=== PATIENT | male | born 1985 | race Caucasian/White ===

== ENCOUNTER 2018-11-14 18:51 | Inpatient (IN) | payer OTHER ==
[2018-11-14] MEDS ORDERED: fentaNYL 100 MCG/2 ML INJ ONE ×2 (18:52→19:15)
[2018-11-14] MEDS ORDERED: HYDROmorphONE/DILAUDID 1 MG/ML INJ ONE ×2 (18:57→19:07)
[2018-11-14] MEDS ORDERED: MIDAZOLAM 2 MG/2 ML VIAL ONE (19:03)
[2018-11-14] MEDS ORDERED: CEFAZOLIN 2 GM/DEXTROSE/100 ML BAG IV ONE (19:06)
[2018-11-14] MEDS ORDERED: TDAP ADULT 0.5 ML INJ (BOOSTRIX) IM ONE ×2 (19:09→19:30)
[2018-11-14] MEDS ORDERED: ROCURONIUM 100 MG/10 ML VIAL ONE (19:15)
[2018-11-14] MEDS ORDERED: SUCCINYLCHOLINE CHLORIDE 200 MG/10 ML SYR IVP ONE (19:15)
[2018-11-14] MEDS ORDERED: LIDOCAINE 2% 2 ML INJ ONE ×3 (19:15)
[2018-11-14] MEDS ORDERED: PROPOFOL 200 MG/20 ML VIAL ONE (19:15)
[2018-11-14 19:18] LABS: PLATELET COUNT 228 10^3/uL (150-400)
[2018-11-14] MEDS ORDERED: ceFAZolin 2 GM/DEXTROSE 100 ML IV ONE (19:30)
[2018-11-14] MEDS ORDERED: MIDAZOLAM 2 MG/2 ML VIAL IVP ONE (19:30)
[2018-11-14] MEDS ORDERED: HYDROmorphONE/DILAUDID 1 MG/ML INJ IVP ONE ×2 (19:30)
[2018-11-14 19:34] LABS: INR 1.44 (0.83-1.16); PROTIME(PATIENT) 16.9 SEC (12.0-15.0)
--- NOTE | 2018-11-14 20:01 | EDPHY ---
H & P Stated Complaint: trauma Time Seen by Provider: 11/14/18 19:17 HPI/ROS: CHIEF COMPLAINT: Fall, humerus fracture, full trauma activation HISTORY OF PRESENT ILLNESS: This is a 32-year-old male presents via EMS as a full trauma activation. Patient was on a trail, cannot describe exactly what happened, but apparently fell approximately 100 ft. This occurred this afternoon. Patient states he was able to walk up to the road and bystanders called EMS. Patient's primary complaint is of right elbow pain, lower back pain , lower abdominal pain. Patient's right upper extremity had a tourniquet placed by paramedics which was placed at 6:30 p.m.. Obvious deformity and open fracture/dislocation is present. Patient denies a head injury, loss of consciousness, chest pain, shortness of breath, neck pain, or lower extremity pain. REVIEW OF SYSTEMS: A comprehensive 10 system review of systems was reviewed and is otherwise negative aside from elements mentioned in the history of present illness and medical decision making. PAST MEDICAL HISTORY: Patient denies. SOCIAL HISTORY: Unknown smoking history. VITAL SIGNS: Reviewed by me; see NN. GENERAL: Well-developed, well-nourished, complaining of right arm pain. HEENT: Head: Atraumatic, normocephalic. Face: Atraumatic. PERRL, EOMI, no nystagmus. Oropharynx: No trauma, normal occlusion. Neck: In a cervical collar. Nontender to palpation. CHEST: Nontender, no subcutaneous air palpable. LUNGS: Clear to auscultation bilaterally, breath sounds are equal. CARDIAC: Regular rate and rhythm, no rubs, murmurs or gallops. ABDOMEN: Soft, tenderness in the left lower quadrant. Nondistended. No guarding. BACK: No CVA tenderness, no spinal tenderness. Multiple abrasions down the right posterior chest wall and right flank. EXTREMITIES: Right upper extremity: Large open wound at the antecubital fossa with muscle, debris, and the distal humerus visible in the wound. Medial and lateral condyles of the humerus visible and protruding from the wound with no muscle attachment. Tourniquet was in place on the humerus. Obvious deformity at the left wrist. Remainder of the extremities without deformity. PULSES: No pulse palpable at the right wrist but tourniquet is in place. NEURO: Alert and oriented x3, cranial nerves are intact throughout, normal motor , normal sensation. SKIN: Warm and dry, no rash. - Personal History Current Tetanus/Diphtheria Vaccine: Unsure Current Tetanus Diphtheria and Acellular Pertussis (TDAP): Unsure - Medical/Surgical History Hx Asthma: No Hx Chronic Respiratory Disease: No Hx Diabetes: No Hx Cardiac Disease: No Hx Renal Disease: No Hx Cirrhosis: No Hx Alcoholism: No Hx HIV/AIDS: No Hx Splenectomy or Spleen Trauma: No Other PMH: denies - Social History Smoking Status: Unknown if ever smoked Constitutional: Initial Vital Signs Temperature (C) 36.4 C 11/14/18 18:51 Heart Rate 65 11/14/18 18:51 Respiratory Rate 20 11/14/18 18:51 Blood Pressure 98/72 L 11/14/18 18:51 O2 Sat (%) 100 11/14/18 18:51 O2 Delivery Mode Nasal Cannula O2 (L/minute) 4 Allergies/Adverse Reactions: No Known Allergies Allergy (Verified 11/14/18 19:35) Home Medications: Medication Instructions Recorded NK [No Known Home Meds] 11/14/18 Medical Decision Making - Diagnostics Imaging Results: Imaging Impressions Fluoroscopy 11/14/18 00:00 Findings/Impression: Fluoroscopic images demonstrate intraoperative repair of fracture and dislocation of the ulna and radius. Contrast is also injected to opacify the arteries of the forearm and hand which appear patent with the exception of decreased opacification of the mid to distal radial artery, possibly spasm. Total fluoroscopic time of 176.3 seconds, 2.9 mGy. Forearm X-Ray 11/14/18 19:10 Impression: 1. Comminuted fracture of the distal radius. 2. Lateral subluxation of the distal humerus in relation to the proximal radius and ulna. Soft tissue air near the elbow is also seen likely from trauma. ED Course/Re-evaluation: 32-year-old male presents after a fall where he rolled approximately 100 [address] from a trail. Obvious complete dislocation at the right elbow joint with distal humerus easily visible in the wound. Also with abdominal discomfort. Procedure: Trauma ultrasound. Limited abdominal ultrasound for blunt abdominal trauma. 1) The right upper quadrant was visualized and was found to be negative for intraperitoneal fluid. 2) The left upper quadrant was visualized and found to be negative for free intraperitoneal fluid, however, several hypoechoic areas were visualized near the spleen, questionably inter splenic fluid collections. The study was felt to be negative for free intraperitoneal fluid but questionable splenic injury. Limited pelvic ultrasound was conducted for abdominal trauma. The bladder was visualized and did not reveal an anechoic area outside of the adjacent urinary bladder. The study was felt to be negative for free intraperitoneal fluid. The study was performed by myself. Tourniquet was removed by myself and Dr. Larios. Several brisk arterial bleeders in the muscle were present. Ulnar pulses appears to be palpable at the wrist. Radial pulse is difficult to ascertain. At this point the tourniquet was reapplied. Distal humerus was reduced into the wound fossa and distal radius/ulnar deformities were closed reduced and a splint was placed by myself and the emergency department tech staff. Decision made to obtain x-rays of the elbow and wrist, administer 1 g of Ancef, and proceed directly to the operating room for further evaluation of the vascular status of the patient's right upper extremity. I-STAT demonstrates stable H&H. No clearly identified intra-abdominal bleeding to preclude management of the arm as initial priority. No evidence of head injury, concussion, patient is alert oriented, no evidence of respiratory compromise. Dr. Larios and discussed the case with Dr. Haider as well as Dr. Rubio. Patient was taken emergently to the operating room at 7:15 p.m. Critical care time spent by Dr. Tanmay workman exclusively with this patient was 30 minutes, exclusive of PA time and exclusive of procedures. The organ system at risk was neurovascular status of the right upper extremity and I gave IV fluids, antibiotics, arranged radiographic evaluation, and placed splint to prevent worsening of the patients condition. Critical care time included obtaining history, performing a physical exam, bedside monitoring of interventions, collecting and interpreting tests and discussion with consultants but not including time spent performing procedures. Differential Diagnosis: Differential diagnosis of this patient's traumatic event was considered including but not limited to intracranial injury, long bone and pelvic bone fracture, spinal injury, intrathoracic injury, extremity injury, vascular injury , complete dislocation of the elbow, intra-abdominal injury, threatened limb. Consult/Admit Bed Type: Dr. Debbie Larios, ICU - Data Points Laboratory Results: Laboratory Results 11/14/18 19:00 11/14/18 19:00 11/14/18 11/14/18 11/14/18 19:03 19:00 19:00 WBC RBC Hgb POC Hgb 13.9 gm/dL gm/dL (13.7-17.5) Hct POC Hct 41 % % (40-51) MCV MCH MCHC RDW Plt Count MPV Neut % (Auto) Lymph % (Auto) [place] % (Auto) Eos % (Auto) Baso % (Auto) Nucleat RBC Rel Count Absolute Neuts (auto) Absolute Lymphs (auto) Absolute Monos (auto) Absolute Eos (auto) Absolute Basos (auto) Absolute Nucleated RBC Immature Gran % Immature Gran # RBC/WBC/PLT Morphology Platelet Estimate PT INR APTT POC Sodium 143 mEq/L mEq/L (135-145) Sodium 138 mEq/L mEq/L (135-145) POC Potassium 3.6 mEq/L mEq/L (3.3-5.0) Potassium 3.8 mEq/L mEq/L (3.5-5.2) POC Chloride 103 mEq/L mEq/L (97-110) Chloride 102 mEq/L mEq/L (97-110) Carbon Dioxide 20 mEq/l L mEq/l (22-31) POC Total CO2 23 mEq/L mEq/L (22-31) Anion Gap 16 mEq/L H mEq/L (6-14) POC BUN 20 mg/dL mg/dL (7-23) BUN 18 mg/dL mg/dL (7-23) Creatinine 1.3 mg/dL mg/dL (0.7-1.3) POC Creatinine 1.4 mg/dL H mg/dL (0.7-1.3) Estimated GFR > 60 Glucose 177 mg/dL H mg/dL (70-100) POC Glucose 183 mg/dL H mg/dL (70-100) Calcium 8.9 mg/dL mg/dL (8.5-10.4) Ethyl Alcohol < 10 mg/dL mg/dL (0-10) Patient ABO/Rh A POSITIVE Antibody Screen NEGATIVE Crossmatch IS Only See Detail 11/14/18 11/14/18 19:00 19:00 WBC 24.46 10^3/uL H 10^3/uL (3.80-9.50) RBC 4.40 10^6/uL 10^6/uL (4.40-6.38) Hgb 13.6 g/dL L g/dL (13.7-17.5) POC Hgb Hct 41.4 % % (40.0-51.0) POC Hct MCV 94.1 fL fL (81.5-99.8) MCH 30.9 pg pg (27.9-34.1) MCHC 32.9 g/dL g/dL (32.4-36.7) RDW 11.8 % % (11.5-15.2) Plt Count 228 10^3/uL 10^3/uL (150-400) MPV 9.7 fL fL (8.7-11.7) Neut % (Auto) 85.3 % H % (39.3-74.2) Lymph % (Auto) 6.9 % L % (15.0-45.0) [place] % (Auto) 6.8 % % (4.5-13.0) Eos % (Auto) 0.1 % L % (0.6-7.6) Baso % (Auto) 0.2 % L % (0.3-1.7) Nucleat RBC Rel Count 0.0 % % (0.0-0.2) Absolute Neuts (auto) 20.86 10^3/uL H 10^3/uL (1.70-6.50) Absolute Lymphs (auto) 1.69 10^3/uL 10^3/uL (1.00-3.00) Absolute Monos (auto) 1.66 10^3/uL H 10^3/uL (0.30-0.80) Absolute Eos (auto) 0.02 10^3/uL L 10^3/uL (0.03-0.40) Absolute Basos (auto) 0.05 10^3/uL 10^3/uL (0.02-0.10) Absolute Nucleated RBC 0.00 10^3/uL 10^3/uL (0-0.01) Immature Gran % 0.7 % % (0.0-1.1) Immature Gran # 0.17 10^3/uL H 10^3/uL (0.00-0.10) RBC/WBC/PLT Morphology TNP Platelet Estimate TNP PT 16.9 SEC H SEC (12.0-15.0) INR 1.44 H (0.83-1.16) APTT 29.3 SEC SEC (23.0-38.0) POC Sodium Sodium POC Potassium Potassium POC Chloride Chloride Carbon Dioxide POC Total CO2 Anion Gap POC BUN BUN Creatinine POC Creatinine Estimated GFR Glucose POC Glucose Calcium Ethyl Alcohol Patient ABO/Rh Antibody Screen Crossmatch IS Only Medications Given: Morphine Sulfate (Morphine) 1 - 2 mg IVP Q1HR PRN PRN Reason: Pain, Severe Unable to Take PO Stop: 11/24/18 20:18 Last Admin: 11/14/18 21:50 Dose: 2 mg Discontinued Medications Diphtheria/Tetanus/Acell Pertussis (Boostrix) 0.5 ml IM .ONCE ONE Stop: 11/14/18 19:31 Last Admin: 11/14/18 19:10 Dose: 0.5 ml Hydromorphone HCl (Dilaudid) 1 mg IVP EDNOW ONE Stop: 11/14/18 19:31 Last Admin: 11/14/18 18:59 Dose: 1 mg Hydromorphone HCl (Dilaudid) 1 mg IVP EDNOW ONE Stop: 11/14/18 19:31 Last Admin: 11/14/18 19:09 Dose: 1 mg Cefazolin Sodium/Dextrose (Ancef) 100 mls @ 200 mls/hr IV EDNOW ONE Stop: 11/14/18 19:59 Last Admin: 11/14/18 19:07 Dose: 100 mls Midazolam HCl (Versed) 2 mg IVP EDNOW ONE Stop: 11/14/18 19:31 Last Admin: 11/14/18 19:04 Dose: 2 mg Papaverine HCl (Papaverine) Confirm Administered Dose 60 mg .ROUTE .STK-MED ONE Stop: 11/14/18 20:09 Last Admin: 11/14/18 21:35 Dose: 1 mg Point of Care Test Results: Chemistry 11/14/18 19:03 POC Sodium 143 mEq/L mEq/L (135-145) POC Potassium 3.6 mEq/L mEq/L (3.3-5.0) POC Chloride 103 mEq/L mEq/L (97-110) POC Total CO2 23 mEq/L mEq/L (22-31) POC BUN 20 mg/dL mg/dL (7-23) POC Creatinine 1.4 mg/dL H mg/dL (0.7-1.3) POC Glucose 183 mg/dL H mg/dL (70-100) ISTAT H&H 11/14/18 19:03 POC Hgb 13.9 gm/dL gm/dL (13.7-17.5) POC Hct 41 % % (40-51) Departure - Departure Disposition: [facility] Inpatient Acute Clinical Impression: Multiple abrasions Dislocation of elbow, right, open Qualifiers: Encounter type: initial encounter Qualified Code(s): S53.104A - Unspecified dislocation of right ulnohumeral joint, initial encounter; S51.001A - Unspecified open wound of right elbow, initial encounter; S51.001A - Unspecified open wound of right elbow, initial encounter Radial artery injury Qualifiers: Encounter type: initial encounter Laterality: right Qualified Code(s): S55.101A - Unspecified injury of radial artery at forearm level, right arm, initial encounter Closed fracture distal radius and ulna Qualifiers: Encounter type: initial encounter Laterality: right Qualified Code(s): S52.501A - Unspecified fracture of the lower end of right radius, initial encounter for closed fracture; S52.601A - Unspecified fracture of lower end of right ulna, initial encounter for closed fracture; S52.601A - Unspecified fracture of lower end of right ulna, initial encounter for closed fracture Abdominal pain Qualifiers: Abdominal location: left lower quadrant Qualified Code(s): R10.32 - Left lower quadrant pain Condition: Serious
[2018-11-14] MEDS ORDERED: PAPAVERINE HCL 60 MG/2 ML SDV ONE (20:08)
[2018-11-14] MEDS ORDERED: NALOXONE HCL 0.4 MG/ML INJ IVP PRN ×2 (20:19→21:31)
[2018-11-14] MEDS ORDERED: IOPAMIDOL (ISOVUE 370) 100 ML BTL IV ONE (20:22)
--- NOTE | 2018-11-14 20:30 | PDANEPAE ---
ANE History of Present Illness exp r arm wound, orif distal radius ANE Past Medical History - Cardiovascular History Hx Hypertension: No Cardiovascular History Comment: unkown - Pulmonary History Hx Oxygen in Use at Home: No Pulmonary History Comment: unkown - Neurologic History Neurologic History Comment: no LOC noted - Endocrine History Hx Diabetes: No - Renal History Renal History Comment: hematuria ANE Review of Systems Review of Systems: - Exercise capacity Exercise capacity: unable to assess ANE Patient History - Allergies Allergies/Adverse Reactions: No Known Allergies Allergy (Verified 11/14/18 19:35) - Home Medications Home Medications: NK [No Known Home Meds] 11/14/18 [Last Taken Unknown] - Anes Hx Hx Anesthesia Complications (with details): unable to elicit anesthetic history - Smoking Hx Smoking Status: Unknown if ever smoked ANE Labs/Vital Signs - Labs Result Diagrams: 11/14/18 19:00 11/14/18 19:00 - Vital Signs Blood Pressure: 114/69 Heart Rate: 93 Respiratory Rate: 18 O2 Sat (%): 93 Weight: 68.039 kg ANE Physical Exam - Airway Neck exam: C-collar in place Mallampati Score: Class 2 Mouth exam: osei - Pulmonary Pulmonary: no respiratory distress - Cardiovascular Cardiovascular: tachycardia - ASA Status ASA Status: II, E ANE Anesthesia Plan Anesthesia Plan: general endotracheal anesthesia Lines/Monitors: central line
[2018-11-14] MEDS ORDERED: SUGAMMADEX SODIUM 200 MG/2 ML VIAL IVP ONE (21:04)
[2018-11-14] MEDS ORDERED: ALBUTEROL 3 ML DEYVIAL IH PRN (21:31)
[2018-11-14] MEDS ORDERED: fentaNYL 100 MCG/2 ML INJ IVP PRN (21:31)
[2018-11-14] MEDS ORDERED: LR 500 ML IV PRN (21:31)
[2018-11-14] MEDS ORDERED: HYDROmorphONE/DILAUDID 1 MG/ML INJ IVP PRN (21:31)
[2018-11-14] MEDS ORDERED: ONDANSETRON 4 MG/2 ML VIAL IVP PRN (21:31)
[2018-11-14] MEDS ORDERED: PHENYLEPHRINE HCL 100 MCG/ML SYR IVP PRN (21:31)
--- NOTE | 2018-11-14 21:32 | POSTANESTH ---
Post Anesthetic Evaluation Cardiovascular Status: Normal, Stable Respiratory Status: Normal, Stable Level of Consciousness/Mental Status: Can Participate in Eval Pain Control: Adequate, Prn Tx Ordered Nausea/Vomiting Control: Adequate, Prn Tx Ordered Complications Possibly Related to Anesthesia: None Noted
--- NOTE | 2018-11-14 21:39 | POSTOPPROG ---
Post Op Note Date of Operation: 11/14/18 Surgeon: Anmol Ruboi Pre-op Diagnosis: Right dysvascular open humerus fracture, distal forearm fractures Post-op Diagnosis: Right open elbow dislocation, distal radius fracture, unstable DRUJ Procedure: I&D right open elbow dislocation, reduction R elbow and of R Wrist Inf/Abcess present in the surg proc area at time of surgery?: No EBL: 100-500 Complications: none Drains: Wound Vac (deep vac laterally with incisional vac over medial elbow wound)
[2018-11-14] MEDS ORDERED: PROMETHAZINE HCL 25 MG/ML INJ ONE (21:44)
--- NOTE | 2018-11-14 22:12 | SUROPNOTE ---
[facility] Operative Report - Surgery Ortho op note DOS 11/14/2018 CC: Right elbow wound and wrist injury HPI: Called by Dr Correa to come to OR for 32y M RHD per report who fell while solo rock climbing and sustained open right elbow injury and closed right wrist injury. Concern in ER for pulseless extremity (pt had tourniquet placed in field ), so taken to OR emergently for exploration, neurovascular assessment by trauma team. Pt was not very conversant/participatory in ER, so team was unable to completely assess RUE NV status via exam. I arrived at the hospital and went straight to the OR where the case was already underway. Please refer to Dr. correa and Dr Lawson's note for their portion of the case. At the time I arrived, they had already identified the brachial artery and injected contrast. The ulnar artery was patent to the arch and there was retrograde flow back the radial artery until around the mid radial shaft, well proximal to the radius fracture. THe wound extended from the lateral antecubital fossa medially and then extended distally ~2cm. The capitellum and lateral distal humerus were clearly visible in the wound with complete avulsion of muscles from that portion of the humerus. The radial head and ulna were dislocated posteriorly. THey trauma team had already clipped various oozing vessels. The radial nerve was not found to be intact in its normal course through the large soft tissue defect over the lateral fossa. A structure suspicious for being an avulsed, traumatized radial nerve or possibly a vessel had been clipped and we sent the avulsed remnant for pathology. Cap refill was slow but present initially. I found that the elbow was dislocated but it appeared that the biceps tendon was still in continuity with the radius. No fractures were appreciated of the proximal ulna, radial head/neck, nor the distal humerus, but the entire elbow was dislocated. With traction and supination, however, we were able to keep the elbow stable and reduced. The fluoro showed that the shoulder appeared reduced, no humerus nor elbow fractures seen. Distal radius appeared fractured and DRUJ seemed unstable. We identified a structure consistent with the median nerve running near the biceps tendon. Much of the lateral muscle origins of the wad were avulsed and traumatized. We then washed out the elbow joint and the open wound with 9L of saline, using digital manipulation, rongeur to gently debride and clean the tissues in the wound. Small bits of vegetation matter were washed out. Once satisfied with the washout, we reduced the elbow again and checked it on fluoro. We also examined the wrist and found the distal radius to be fractured and the DRUJ unstable. The ulnar artery was dopplerable. The radial artery was not at the wrist. We used 2-O proline to close the medial half of the antecubital wound to cover the neurovascular structures. The lateral soft tissue deficit had a white sponge and then a black sponge applied to allow for some drainage. the medial wound was covered with an incisional vac portion. Suction set at 75mmHg. mild drainage only noted. The elbow was kept reduced in supination and about 45 degrees of flexion. The distal radius fracture was reduced with some gentle traction and a volar- directed push of the distal radius fragment. A volar forearm slab was placed to hold the wrist steady. this was then incorporated into a long-arm splint to stability the elbow and keep the wrist aligned. Post-splint fluoro verified that the elbow and wrist remained reduced. He had good cap refill at the conclusion of the case. Findings: complete dislocation of the Right elbow. Distal radius fracture ( closed) and unstable DRUJ. Possible radial nerve avulsion injury. Drains: wound vac
--- NOTE | 2018-11-14 22:18 | POSTOPPROG ---
Post Op Note Date of Operation: 11/14/18 Surgeon: Debbie Larios Rotating Equipment Specialist: Rigoberto Haider Anesthesiologist: Willie Anesthesia: GET(General Endotracheal) Pre-op Diagnosis: Trauma, cool pulseless hand, bleeding with tourniquet down Post-op Diagnosis: fx dislocation, possible spasm Indication: 32 yo fell 100 feet with fx dislocation, tourniquet in place when took ange Procedure: wound exploration, ligation veins, angiogram Findings: ulnar artery intact and retrograde flow radial artery Inf/Abcess present in the surg proc area at time of surgery?: Yes Depth: Deep Incisional (Fascial) EBL: 50-100 Specimen(s): tissue ? radial nerve
[2018-11-14] MEDS ORDERED: IOPAMIDOL (ISOVUE-300) 100 ML BTL ONE (22:33)
--- NOTE | 2018-11-14 22:34 | PDCONSULT ---
[employer] Note: Ortho consult note DOS 11/14/2018 CC: Fall onto Right arm HPI: per report, 32y M RHD pt fell from height while rock climbing solo. Sustained an open right arm injury concerning for open fracture and a tourniquet was placed in the field. He was brought to ED and evaluated by trauma team who did not appreciate a pulse. the patient was taken to the OR for emergent exploration. refer to op notes for further details. Pt PMHx: pt says he is healthy and no chronic medications ALL: some bees. Denies medication allergies PSHx: [place] teeth Fam Hx: noncontributory. says he isn't interested in involving them at the moment. SocHx: Vapes. Does not drink. 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 was in [facility] [place]. PE: During wakeup, the patient was moving his left arm and hand well to grasp. In the postop area, we checked the bilateral hips, knees, and ankles for any gross instability. the joints passively moved well. After the patient woke up, we performed a neurovascular exam. He said he was ' bored by it' and was not 'interested' in participating. I emphasized that he could have serious nerve deficits permanently and needed to participate. LUE: SILT A/R/U/M. 5/5 EPL/FDS/FDP2,5 moving elbow/wrist/shoulder/fingers well. 2+ radial pulse BLE: SILT S/S/SP/DP/T. 5/5 TA/GS/FHL/EHL. 2+ PT pulses. AROM of knees/hips/ ankles without pain. RUE: SILT A/U/M. pt declares he can 'feel' dorsal hand being touched, but unable to discern clearly on exam. + FPL/FDS/FDP2,5. unable to actively extend thumb nor fingers. brisk cap refill. in splint, CDI. wound vac present. Imaging: preop radiographs show complete elbow dislocation but no clear elbow fractures. Distal radius fracture noted. Assessment: 32y M RHD climber p/w Right elbow open dislocation, likely radial nerve deficit, closed Right wrist fracture. Plan: - NWB RUE - WOund vac to 75mmHg - Plan for repeat I&D of RUE on Monday PM or monday AM - Abx: ancef, Gentamycin, Penicillin G
--- NOTE | 2018-11-14 22:44 | GOP ---
[f rep st] OPERATIVE REPORT DATE OF OPERATION: 11/14/2018 SURGEON: Debbie Larios MD OFFICE MANAGER EXECUTIVE ASSISTANT: Rigoberto Haider MD. ANESTHESIOLOGIST: David Tapia MD. PREOPERATIVE DIAGNOSIS: Traumatic wound of right upper extremity with concern for vascular compromise and fracture dislocation. POSTOPERATIVE DIAGNOSIS: Traumatic wound of right upper extremity with concern for vascular compromise and fracture dislocation. PROCEDURE PERFORMED: Right arm exploration, ligation of bleeding veins, and angiogram. FINDINGS: Obvious fracture of wrist. Open wound with dislocation of humerus. Adequate distal flow SPECIMENS: Tissue and ?nerve. ESTIMATED BLOOD LOSS: 50 cc. INDICATIONS: The patient is a 32 year old who fell down 100 feet and then crawled up to the top of the [place]. EMS was called. They found his humerus was dislocated and out of the skin. He was bleeding, and a tourniquet was placed. At 1836 he presented to the Trauma [place]. I attempted to take down the tourniquet , but there was a lot of bleeding and I also did not palpate a pulse at that time. Per EMS, there was no pulse palpated prior to the tourniquet being placed. Immediate wound exploration was indicated. DESCRIPTION OF PROCEDURE: Patient was brought into the operating room and intubated. We prepped his right chest and arm with the tourniquet into the field. Concurrently anesthesia was putting in a left IJ central line. We removed the field tourniquet at approximately 2015, and I placed the operative tourniquet but did not connect this to the pneumatic pressure. On superficial wound exploration, he had small bleeding veins in the muscle belly. These were clipped. I palpated the brachial artery at the antecubital fossa, I extended the incision further and dissected down through the skin and subcutaneous tissues. I carefully divided the fascia until I encountered the brachial artery. I circumferentially dissected the artery and placed a vessel loop around this. I used a 22-gauge Angiocath and then performed fluoroscopy with contrast. I used approximately 60 cc of contrast. On the angiogram, I could see flow in the ulnar artery to the arch on his hand with retrograde flow into the radial artery. The radial artery was certainly not as vibrant as the ulnar. I continued to explore the wound. I divided another long devitalized structure. We sent this for pathology. I was concerned it could be the radial nerve. The median nerve appeared to be intact. Fingers were pink and warming. As there was not an obvious vascular injury Dr. Rubio was able to complete his portion of the case. /[id number]/MODL MTDD
--- NOTE | 2018-11-14 22:49 | GHP ---
[f rep st] HISTORY AND PHYSICAL DATE OF ADMISSION: 11/14/2018 CHIEF COMPLAINT: Full trauma activation. HISTORY OF PRESENT ILLNESS: The patient is a 32-year-old man who reports that he was looking over a ledge when all of a sudden he fell. This was not intentional. He was not trying to hurt himself. He reports that it all happened very fast. He rolled approximately 100 feet. His arm was severely injured and so he crawled back to the top and was able to call for help. EMS called him and saw that he had an open fracture of his right arm with severe amount of bleeding. A tourniquet was placed at 1836, and he was brought to [facility]. At the scene they report he had a weak advanced practice nurse psychotherapist of his hand. They were unable to palpate a pulse. He received 200 mcg of fentanyl en route. PAST MEDICAL HISTORY: None. MEDICATIONS: None. ALLERGIES: None. FAMILY HISTORY: Noncontributory. REVIEW OF SYSTEMS: Complaining of obvious arm pain. He does not report loss of consciousness. He does grimace to pain in the left upper quadrant, and he does have some lateral back pain. PHYSICAL EXAMINATION: VITAL SIGNS: 36.4, 65, 98/72, 20, 100%. GENERAL: Pleasant, surprisingly calm and cooperative. HEENT: Normocephalic, atraumatic. No gross hearing deficits. No hemotympanum. No otorrhea. No rhinorrhea. Teeth fit together normally. LUNGS: Clear to auscultation bilaterally. No increased work of breathing. CARDIAC: Regular rate. No pulse palpated on the right upper extremity. ABDOMEN: Tender in the left upper quadrant. BACK: No spinal tenderness. He does have an abrasion on his left flank and buttock. MUSCULOSKELETAL: 5/5 strength with the exception of the right upper extremity. He has an obvious fracture dislocation on his right upper extremity. NEURO: He has sensation on his arm. Results: I was present during the FAST exam and there was not a crisp deliniation between the spleen and the left kidney IMPRESSION/PLAN: The patient is a 32-year-old man status post fall with a fracture dislocation that is open of his right arm. In the emergency room I tried to take down the tourniquet. There was a large amount of bleeding that I was not able to adequately explore the wound. When I had the tourniquet down I was unable to palpate a radial pulse. I tried to reduce the fracture to improve with this. Due to the severity of the injury, the decision was made to proceed directly to the operating room. Further imaging after the OR /[id number]/MODL MTDD
[2018-11-14] MEDS: GENTAMICIN 80 MG/NACL 100 ML IV SCH (23:48)
[2018-11-15] MEDS: HYDROmorphONE/DILAUDID 1 MG/ML INJ IVP PRN ×8 (01:18→20:36)
[2018-11-15] MEDS: HYDROCODONE/APAP 5/325 TAB PO PRN ×4 (02:20→17:49)
[2018-11-15] MEDS: ONDANSETRON 4 MG/2 ML VIAL IVP PRN (02:21)
[2018-11-15 05:21] LABS: PLATELET COUNT 172 10^3/uL (150-400)
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
[2018-11-15] MEDS ORDERED: PENICILLIN G POTASSIUM 4,000,000 UNIT in D5W 100 ML IV SCH (06:00)
--- NOTE | 2018-11-15 09:33 | ASMTCASEMG ---
Living Arrangements What is your living Answers: Alone arrangement? Who do you live with? Type Of Residence What kind of residence do Answers: House you live in? Discharge Plan Comments Coordination Status Comments Notes: Patient is a 32yo single male who fell approximately 100 ft while hiking on a trail. Patient sustained a fracture dislocation that is open on his right arm. Due to the severity of the injury patient was taken emergently to surgery. PT/OT/[facility]/Inpatient rehab evals have been ordered. D/C plan TBD. CM will follow. Date Signed: 11/15/2018 09:32 AM Electronically Signed By:Tiera Huggins LCSW
--- NOTE | 2018-11-15 09:52 | SOAPPROG ---
SOAP Progress Note Assessment/Plan: Assessment: TERTIARY EXAM 32-YEAR-OLD MALE WHO FELL BOULDER RING SUSTAINING A SIGNIFICANT INJURY TO HIS RIGHT ARM DENIES ANY LOSS OF CONSCIOUSNESS OR ANY NECK PAIN/CERVICAL COLLAR WAS REMOVED ACCORDING TO PROTOCOL 2 HE DOES COMPLAIN OF SMALL LOWER LUMBAR AREA DISC HEMATOCRIT STABLE BUT IS COAGS ARE ELEVATED FOR UNCERTAIN REASONS HEENT WITHOUT EVIDENCE OF TRAUMA, PERRLA, IS NORMAL OCCLUSION, TMS CLEAR NECK SUPPLE NONTENDER FULL RANGE OF MOTION CHEST CLEAR AND SYMMETRIC NO PALPABLE RIB OR STERNAL FRACTURES OR CLAVICLE FRACTURES COR REGULAR RHYTHM ABDOMEN SOFT NO APPRECIABLE TENDERNESS GENITALIA NORMAL EXTREMITIES FULL RANGE OF MOTION FULL PULSES EXCEPT FOR HIS RIGHT ARM WHICH IS IN A FULL ARM SPLINT. HIS FINGERS ARE WARM AND SOMEWHAT SENSATE AND MOBILE WITH GOOD CAPILLARY REFILL. HIS PULSES CANNOT BE CHECKED BECAUSE OF THE SPLINT MATERIAL IMPRESSION OPEN RIGHT FRACTURE DISLOCATION OF THE ELBOW WITH TRANSECTION OF THE BRACHIAL RADIALIS MUSCLE, POSSIBLE AVULSION OF THE RADIAL NERVE/FRACTURE DISLOCATION OF THE RIGHT RADIUS AND ULNAR DISTALLY/MILD RETROPERITONEAL INFLAMMATION IN THE RIGHT MICHAEL NEPHRIC NEPHRIC AND ADRENAL AREA MILD CHIP FRACTURES OF L2 AND L4 RIGHT TRANSVERSE PROCESS FRACTURES Plan: FOLLOW-UP WITH NEUROSURGERY AND ORTHO/ADVANCE DIET/DC CERVICAL COLLAR/ TRANSFER TO [facility] 11/15/18 09:47 Objective: Vital Signs Temp Pulse Resp BP Pulse Ox 37.2 C 99 16 100/70 92 11/15/18 08:00 11/15/18 08:00 11/15/18 08:00 11/15/18 08:00 11/15/18 08:00 Laboratory Results 11/15/18 05:00 11/15/18 05:00 11/14/18 11/15/18 11/16/18 05:59 05:59 05:59 Intake Total 2320 Output Total 1400 Balance 920 PT 16.9 SEC (12.0-15.0) H 11/14/18 19:00 INR 1.44 (0.83-1.16) H 11/14/18 19:00 ICD10 Worksheet Patient Problems: Problems Problem Status Onset Abdominal pain Acute Closed fracture distal radius and ulna Acute Dislocation of elbow, right, open Acute Multiple abrasions Acute Radial artery injury Acute
[2018-11-15] MEDS: AMPICILLIN/SULBACTAM 3 GM in NS 100 ML IV SCH ×3 (10:21→22:11)
[2018-11-15] MEDS: GENTAMICIN 80 MG/NACL 100 ML IV SCH (10:27)
--- NOTE | 2018-11-15 10:44 | PDMN ---
Medical Necessity Medical necessity: Pt meets inpt criteria per MD order and [facility], Radius/ Ulna Fracture, Closed or Open Reduction: open R dislocation of the elbow w/ transection of the brachial radialis muscle, possible avulsion of the radial nerve, distal radius fx, unstable DRUJ. Pt underwent I&D of R open elbow dislocation, reduction of R elbow and R wrist, wound vac placement to elbow wound. Pt also w/mild retroperitoneal inflammation in the R daniel nephric and adrenal area, mild chip fx's of L2 and L4 R transverse process fx's. Extended stay anticipated, meets inpt under [facility]-1012 ext stay for: mult injuries, nerve injury (likely radial nerve defecit), and open fractures requiring extensive or repeat debridement (open elbow dislocation will need repeat I&D). 32 y/o s/p rock climbing fall admitted w/R writst fx and R open elbow dislocation. Surgeries listed above, wound vac in place to R elbow, plan for repeat RUE I&D 11/17/18 AM, IV ABX's for soiled open injury, pain management: IV Dilaudid or morphine every 1-3 hours during nt/this morning in addition to PO pain med, SDU lv of care, est LOS>2MN for ongoing eval/management of above.
[2018-11-15] MEDS ORDERED: IOPAMIDOL (ISOVUE 370) 100 ML BTL IV ONE (11:26)
[2018-11-15] MEDS: NS 1,000 ML IV SCH ×2 (13:44→22:10)
[2018-11-15] MEDS ORDERED: LACTULOSE 20 GM/30 ML UDCUP PO PRN (20:08)
[2018-11-15] MEDS ORDERED: MAGNESIUM HYDROXIDE 30 ML UDCUP PO PRN (20:08)
[2018-11-15] MEDS ORDERED: BISACODYL 10 MG SUPP PR PRN (20:08)
[2018-11-15] MEDS ORDERED: POLYETHYLENE GLYCOL 3350 17 GM PKT PO PRN (20:08)
[2018-11-15] MEDS: SENNOSIDES/DOCUSATE SODIUM TAB PO SCH (20:31)
[2018-11-15] MEDS: KETOROLAC 15 MG/1 ML SDV IVP SCH (20:45)
[2018-11-15] MEDS: oxyCODONE IR 5 MG TAB PO PRN (22:11)
[2018-11-15] MEDS: GABAPENTIN 100 MG CAP PO SCH (22:11)
--- NOTE | 2018-11-15 22:31 | SOAPPROG ---
SOAP Progress Note Assessment/Plan: Assessment: TERTIARY EXAM 32-YEAR-OLD MALE WHO FELL BOULDER RING SUSTAINING A SIGNIFICANT INJURY TO HIS RIGHT ARM DENIES ANY LOSS OF CONSCIOUSNESS OR ANY NECK PAIN/CERVICAL COLLAR WAS REMOVED ACCORDING TO PROTOCOL 2 HE DOES COMPLAIN OF SMALL LOWER LUMBAR AREA DISC HEMATOCRIT STABLE BUT IS COAGS ARE ELEVATED FOR UNCERTAIN REASONS HEENT WITHOUT EVIDENCE OF TRAUMA, PERRLA, IS NORMAL OCCLUSION, TMS CLEAR NECK SUPPLE NONTENDER FULL RANGE OF MOTION CHEST CLEAR AND SYMMETRIC NO PALPABLE RIB OR STERNAL FRACTURES OR CLAVICLE FRACTURES COR REGULAR RHYTHM ABDOMEN SOFT NO APPRECIABLE TENDERNESS GENITALIA NORMAL EXTREMITIES FULL RANGE OF MOTION FULL PULSES EXCEPT FOR HIS RIGHT ARM WHICH IS IN A FULL ARM SPLINT. HIS FINGERS ARE WARM AND SOMEWHAT SENSATE AND MOBILE WITH GOOD CAPILLARY REFILL. HIS PULSES CANNOT BE CHECKED BECAUSE OF THE SPLINT MATERIAL IMPRESSION OPEN RIGHT FRACTURE DISLOCATION OF THE ELBOW WITH TRANSECTION OF THE BRACHIAL RADIALIS MUSCLE, POSSIBLE AVULSION OF THE RADIAL NERVE/FRACTURE DISLOCATION OF THE RIGHT RADIUS AND ULNAR DISTALLY/MILD RETROPERITONEAL INFLAMMATION IN THE RIGHT MICHAEL NEPHRIC NEPHRIC AND ADRENAL AREA MILD CHIP FRACTURES OF L2 AND L4 RIGHT TRANSVERSE PROCESS FRACTURES Plan: FOLLOW-UP WITH NEUROSURGERY AND ORTHO/ADVANCE DIET/DC CERVICAL COLLAR/ TRANSFER TO [facility] 11/15/18 09:47 11/15/18 22:29 pt continues to improve/ cxr clear but suggests thoracic compression fxs/ no spinal tenderness but will order ct vs stable / afebrile angio of arm wnl Objective: Vital Signs Temp Pulse Resp BP Pulse Ox 37.3 C 93 16 110/62 98 11/15/18 19:44 11/15/18 19:44 11/15/18 19:44 11/15/18 19:44 11/15/18 19:44 Laboratory Results 11/15/18 05:00 11/15/18 05:00 11/14/18 11/15/18 11/16/18 05:59 05:59 05:59 Intake Total 2320 1000 Output Total 1400 1525 Balance 920 -525 PT 16.9 SEC (12.0-15.0) H 11/14/18 19:00 INR 1.44 (0.83-1.16) H 11/14/18 19:00 ICD10 Worksheet Patient Problems: Problems Problem Status Onset Abdominal pain Acute Closed fracture distal radius and ulna Acute Dislocation of elbow, right, open Acute Multiple abrasions Acute Radial artery injury Acute
[2018-11-16] MEDS: HYDROmorphONE/DILAUDID 1 MG/ML INJ IVP PRN (00:56)
[2018-11-16] MEDS: KETOROLAC 15 MG/1 ML SDV IVP SCH ×4 (03:07→21:31)
[2018-11-16] MEDS: oxyCODONE IR 5 MG TAB PO PRN ×5 (03:07→21:42)
[2018-11-16] MEDS: AMPICILLIN/SULBACTAM 3 GM in NS 100 ML IV SCH ×4 (03:43→21:32)
--- NOTE | 2018-11-16 08:10 | TRAUMAPN ---
Trauma Progress Note Assessment/Plan: decent night. nerve pain better with gabapentin. notes right lower flank pain. no leg numbness or tingling. no cp or sob. no hand numbness other than thumb. afebrile. VSS alert, appropriate, comfortable neck - right SCM tenderness, no posterior midline tenderness. left neck IV in place. heart - regular lungs - clear abd - soft, nontender back - diffuse soft tissue swelling and tenderness right lower back/paramedian lumbar spine. ext - RUE surgical dressing/wound VAC in place - serosang. neuro - diminished sensation right thumb. flexion present throughout all digits - partial extension radial/ulnar distribution. s/p rock climbing , fall right adrenal hematoma - stable right renal contusion - stable pulmonary contusion vs atelectasis - continued aggressive pulm toilet - no clinical concern for blossoming right inferior pubic ramus fracture - nonop, supportive care L2/L4 transverse process fractures - nonop - supportive care complex right upper extremity fracture / dislocation - for washout/ORIF tomorrow with ortho (Rubio), cont gabapentin, PT/OT, remove neck IV, ambulate with wound VAC. care plan reviewed with nursing staff. Objective: Vital Signs Temp Pulse Resp BP Pulse Ox 37.4 C 91 16 102/62 98 11/16/18 07:24 11/16/18 07:24 11/16/18 07:24 11/16/18 07:24 11/16/18 07:24 Laboratory Results 11/15/18 05:00 11/15/18 05:00 11/15/18 11/16/18 11/17/18 05:59 05:59 05:59 Intake Total 2320 1500 Output Total 1400 1525 Balance 920 -25 PT 16.9 SEC (12.0-15.0) H 11/14/18 19:00 INR 1.44 (0.83-1.16) H 11/14/18 19:00
[2018-11-16] MEDS ORDERED: IOPAMIDOL (ISOVUE-300) 100 ML BTL ONE (08:34)
[2018-11-16] MEDS: ENOXAPARIN 40 MG/0.4 ML SYR SC SCH (09:31)
[2018-11-16] MEDS: GABAPENTIN 100 MG CAP PO SCH ×3 (09:32→21:32)
[2018-11-16] MEDS: SENNOSIDES/DOCUSATE SODIUM TAB PO SCH ×2 (09:32→21:31)
--- NOTE | 2018-11-16 20:50 | GCON ---
[f rep st] CONSULTATION Patient Name: KERRY WIN N-Number: [id number] Date of : 1985 Patient Status: Inpatient Attending Doctor: Debbie Palma MD Consulting Doctor: Anmol Peterson MD Date of service: 11/16/18 CPT codes: CPT code 62588 ER visit requiring admission or initial inpatient visit, level three CHIEF COMPLAINT: Right fingers and thumb wont extend HISTORY OF PRESENT ILLNESS: This is a very pleasant 32 year old male with: -11/14/18 right open elbow dislocation with right distal radius fracture ( complete, intra-articular) and right distal radio-ulnar joint dislocation after a fall from a height while solo rock climbing -11/14/18 evaluated the [facility] ED -11/14/18 right elbow open reduction with irrigation and debridement and laceration repair and right distal radius and DRUJ closed reduction and splinting (Dr. Palma and Dr. Rubio) During the patients surgery on 11/14/18, an avulsed structure was identified within the wound and sent for pathology. The pathology demonstrated nerve tissue. Following the patients surgery, he has been unable to extend his right thumb IP joint and he has been unable to bring his finger MCP joints to full extension. I have been consulted by Dr. Rubio due to concern for a complete radial nerve avulsion. PROBLEM LIST: Right open elbow dislocation, right distal radius fracture, right DRUJ dislocation PAST MEDICAL HISTORY: See [facility] SURGERIES: Right elbow open reduction with irrigation and debridement and laceration repair , right distal radius and DRUJ closed reduction SOCIAL HISTORY: Denies tobacco, alcohol, or illicit drug use FAMILY HISTORY: Non-contributory CURRENT MEDICATIONS: See [employer] ALLERGIES: NKDA REVIEW OF SYSTEMS Constitutional: No unexpected weight loss, weight gain, fevers, chills, or fatigue. Eyes: No blurred or double vision, no eye pain, redness or swelling. ENT: No headaches, difficulty swallowing, nose bleeds, tinnitus, or earaches. Cardiovascular: No chest pain, palpitations, fainting or murmurs. Respiratory: No shortness of breath, wheezing, cough, of difficulty breathing. GI: No reflux, no nausea or vomiting, no constipation, diarrhea, or bloody stools. Genitourinary: No urinary frequency or urgency, no pain with urination. Skin: No skin changes, rashes, itching, or redness. Neurologic: No unsteadiness of gait, no dizziness, tremors, or seizures. Psychiatric: No nervousness, anxiety, depression, or hallucinations. Hematologic: No increased bleeding or easy bruising. Endocrine: No excessive thirst or urination and no heat or cold intolerances. Allergic: No reactions to food or environment. Musculoskeletal: See history of present illness. PHYSICAL EXAM General: No apparent distress. Orientation: Alert and oriented times three Mood and affect: Calm, appropriate. Gait and station: Normal gait and station. Skin: Warm, dry. Lymph: Non tender neck, axillary and inguinal nodes. Chest: Equal expansion, no pain with deep breaths, speaks in coherent sentences. Cardiovascular: Regular pulse. Abdomen: Soft, non-tender, no masses, no palpable hernias. Bilateral finger examination Inspection/palpation: Right: Long arm splint CDI Left: Soft, no tenderness to palpation. Finger ROM Index MCP: 30-80 / 0-80 / 0-80 PIP: 0-105 / 0-105 / 0-105 DIP: 0-75 / 0-75 / 0-75 Long MCP: 30-80 / 0-80 / 0-80 PIP: 0-105 / 0-105 / 0-105 DIP: 0-75 / 0-75 / 0-75 Ring MCP: 30-80 / 0-80 / 0-80 PIP: 0-105 / 0-105 / 0-105 DIP: 0-75 / 0-75 / 0-75 Small MCP: 30-80 / 0-80 / 0-80 PIP: 0-105 / 0-105 / 0-105 DIP: 0-75 / 0-75 / 0-75 Finger motor and sensory Index FDS: + / + / + FDP: + / + / + EDC: + / + / + RDN: + / + / + UDN: + / + / + Long FDS: + / + / + FDP: + / + / + EDC: + / + / + RDN: + / + / + UDN: + / + / + Ring FDS: + / + / + FDP: + / + / + EDC: + / + / + RDN: + / + / + UDN: + / + / + Small FDS: + / + / + FDP: + / + / + EDC: + / + / + RDN: + / + / + UDN: + / + / + Vascular < 2 second capillary refill throughout Bilateral thumb examination Inspection/palpation: Right: Soft, no tenderness to palpation. Left: Soft, no tenderness to palpation. Thumb ROM CMC Radial abduction: 80 / 80 / 80 Palmar abduction: 80 / 80 / 80 MCP: 0-60 / 0-60 / 0-60 IP: 30-50 / 0-50 / 0-50 Thumb motors FPL: 5 / 5 / 5 EPL: 0 / 5 / 5 Thumb sensory RDN: + / + / + UDN: + / + / + Vascular < 2 second capillary refill Medical decision making Data Imaging study: right elbow radiographs Action: interpreted Interpretation / pertinent findings: right elbow incongruency Imaging study: right wrist radiographs Action: interpreted Interpretation / pertinent findings: right distal radius fracture (complete, intra-articular), right distal radio-ulnar joint incongruency Diagnoses New diagnosis: right elbow open dislocation with probable associated radial nerve avulsion Work-up planned: yes: see assessment and plan Assessment and plan This is a 32 year old male now 2 days s/p right open elbow dislocation on with concern for a concomitant right radial nerve avulsion - I have discussed with the patient the risks, benefits, alternatives, and complications associated with both non-operative (specifically, observation) and operative (specifically, right radial nerve cable allografting versus delayed tendon transfers) forms of treatment -The patient fully understands the risks, benefits, alternatives, and complications of both forms of treatment and he wishes to continue with observation at present - Of note, if the patient was interested in nerve allograft interposition, he understands that his soft tissue wound would need to be completely healed and stable prior to proceeding - He will follow-up as an outpatient once his elbow wound has stabilized for re- discussion of options Time I have spent 80 minutes of [id number] time with the patient during this visit. Over fifty percent of this time was spent counseling the patient on the risks, benefits, alternatives, and complications of both non-operative and operative forms of treatment as outlined above. /[id number]/MODL MTDD
--- NOTE | 2018-11-16 23:25 | SOAPPROG ---
TAO Progress Note Assessment/Plan: Assessment: 32y RHD M s/p rock climbing fall p/w Right wrist fracture and R open elbow dislocation s/p I&D Plan: - I&D tomorrow AM at 8AM for right elbow I&D - Requested Hand see the patient today for planning of ORIF and potential right radial nerve deficit. Appreciate their assistance with patient's plan - NPO after midnight - had a long discussion with patient regarding potential plan moving forward. 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 He 'wishes he could just do daily yoga exercises for the hand and make it better' without resorting to 'nanotechnology'. Subjective: Patient states he is having a hard time elevating the arm. He is concerned about his ability to draw and function with a disabled right arm. mild back pain at TP fracture location, denies ischial pain Objective: Vital Signs Temp Pulse Resp BP Pulse Ox 37.6 C 106 H 18 114/66 90 L 11/16/18 19:21 11/16/18 19:21 11/16/18 19:21 11/16/18 19:21 11/16/18 19:21 Laboratory Results 11/15/18 05:00 11/15/18 05:00 11/15/18 11/16/18 11/17/18 05:59 05:59 05:59 Intake Total 2320 1500 1500 Output Total 1400 1525 Balance 920 -25 1500 PT 16.9 SEC (12.0-15.0) H 11/14/18 19:00 INR 1.44 (0.83-1.16) H 11/14/18 19:00 PE: AxOx3. walking without antalgia. RUE: moderate edema of right digits. Unable to sense light touch over dorsal 1st webspace. unreliable sensation over dorsum of hand. Inability to fire EPL nor EDC. intrinsic DIP/PIP extension intact. ulnar/median sensation intact. brisk cap refill. warm hand. Splint CDI. ICD10 Worksheet Patient Problems: Problems Problem Status Onset Abdominal pain Acute Closed fracture distal radius and ulna Acute Dislocation of elbow, right, open Acute Multiple abrasions Acute Radial artery injury Acute
[2018-11-17] MEDS: KETOROLAC 15 MG/1 ML SDV IVP SCH ×4 (04:12→21:16)
[2018-11-17] MEDS: AMPICILLIN/SULBACTAM 3 GM in NS 100 ML IV SCH ×4 (04:12→21:23)
[2018-11-17] MEDS ORDERED: CHLORHEXIDINE GLUC HIBICLENS 118 ML BTL TP ONE (05:57)
[2018-11-17] MEDS ORDERED: BACITRACIN ZINC 0.5 OZ OINTTUBE TP ONE (07:37)
[2018-11-17] MEDS ORDERED: LIDOCAINE 1% 300 MG/30 ML SDV ONE (07:38)
[2018-11-17] MEDS ORDERED: BUPIVACAINE 0.25% 30 ML SDV ONE (07:38)
[2018-11-17] MEDS ORDERED: CEFAZOLIN 2 GM/DEXTROSE/100 ML BAG IV ONE (07:54)
[2018-11-17] MEDS ORDERED: ceFAZolin 2 GM/DEXTROSE 100 ML IV ONE (07:58)
--- NOTE | 2018-11-17 08:03 | PDANEPAE ---
ANE History of Present Illness fall from thom with RUE fractures, here for I+D ANE Past Medical History - Cardiovascular History Hx Hypertension: No Hx Arrhythmias: No Hx Chest Pain: No Hx Coronary Artery / Peripheral Vascular Disease: No Hx CHF / Valvular Disease: No Hx Palpitations: No Cardiovascular History Comment: unkown - Pulmonary History Hx COPD: No Hx Asthma/Reactive Airway Disease: No Hx Recent Upper Respiratory Infection: No Hx Oxygen in Use at Home: No Hx Sleep Apnea: No Sleep Apnea Screening Result - Last Documented: Negative Pulmonary History Comment: unkown - Neurologic History Neurologic History Comment: no LOC noted - Endocrine History Hx Diabetes: No - Renal History Renal History Comment: hematuria ANE Review of Systems Review of Systems: - Exercise capacity Exercise capacity: >=4 METS ANE Patient History - Allergies Allergies/Adverse Reactions: No Known Allergies Allergy (Verified 11/14/18 19:35) - Home Medications Home Medications: NK [No Known Home Meds] 11/14/18 [Last Taken Unknown] - NPO status NPO Status: no food or drink >8 hours NPO Since - Liquids (Date): 11/17/18 NPO Since - Liquids (Time): 00:00 NPO Since - Solids (Date): 11/16/18 NPO Since - Solids (Time): 21:00 - Anes Hx Anes Hx: no prior problems - Smoking Hx Smoking Status: Unknown if ever smoked - Alcohol Use Alcohol Use: Rarely - Family Anes Hx Family Anes Hx: none ANE Labs/Vital Signs - Labs Result Diagrams: 11/15/18 05:00 11/15/18 05:00 - Vital Signs Blood Pressure: 109/73 Heart Rate: 77 Respiratory Rate: 16 O2 Sat (%): 93 Height: 182.88 cm Weight: 68 kg ANE Physical Exam - Airway Neck exam: FROM Mallampati Score: Class 1 Mouth exam: normal dental/mouth exam - Pulmonary Pulmonary: no respiratory distress, clear to auscultation - Cardiovascular Cardiovascular: regular rate and rhythym, no murmur, rub, or gallop - ASA Status ASA Status: I ANE Anesthesia Plan Anesthesia Plan: GA w LMA
[2018-11-17] MEDS ORDERED: MIDAZOLAM 2 MG/2 ML VIAL IVP ONE (08:04)
[2018-11-17] MEDS ORDERED: MIDAZOLAM 2 MG/2 ML VIAL ONE (08:06)
[2018-11-17] MEDS ORDERED: fentaNYL 100 MCG/2 ML INJ ONE (08:09)
[2018-11-17] MEDS ORDERED: PROPOFOL 200 MG/20 ML VIAL ONE (08:09)
[2018-11-17] MEDS ORDERED: LIDOCAINE 2% 100 MG/5 ML SYR ONE (08:09)
[2018-11-17] MEDS ORDERED: HYDROmorphONE/DILAUDID 2 MG/ML INJ ONE (09:13)
[2018-11-17] MEDS ORDERED: PROMETHAZINE HCL 25 MG/ML INJ IVP PRN (10:43)
[2018-11-17] MEDS ORDERED: HYDROCODONE/APAP 5/325 TAB PO PRN (10:43)
[2018-11-17] MEDS ORDERED: ONDANSETRON 4 MG/2 ML VIAL IVP PRN (10:43)
[2018-11-17] MEDS ORDERED: ACETAMINOPHEN 500 MG TAB PO PRN (10:43)
[2018-11-17] MEDS ORDERED: fentaNYL 100 MCG/2 ML INJ IVP PRN (10:43)
[2018-11-17] MEDS ORDERED: oxyCODONE IR 5 MG TAB PO PRN (10:43)
[2018-11-17] MEDS ORDERED: HYDROmorphONE/DILAUDID 1 MG/ML INJ IVP PRN (10:43)
[2018-11-17] MEDS ORDERED: NALOXONE HCL 0.4 MG/ML INJ IVP PRN (10:43)
--- NOTE | 2018-11-17 10:45 | POSTOPPROG ---
Post Op Note Date of Operation: 11/17/18 Surgeon: Anmol Rubio Fur Designer: None Anesthesia: GET(General Endotracheal) Pre-op Diagnosis: Right open elbow dislocation, right distal radius fracture Post-op Diagnosis: Same plus deficient radial nerve Procedure: I&D right elbow, reduction elbow dislocation and of distal radius Inf/Abcess present in the surg proc area at time of surgery?: No EBL: 50-100
--- NOTE | 2018-11-17 10:46 | POSTANESTH ---
Post Anesthetic Evaluation Cardiovascular Status: Normal, Stable, Similar to Pre-Op Cond Respiratory Status: Normal, Stable, Similar to Pre-op Cond. Level of Consciousness/Mental Status: Can Participate in Eval, Alert and Oriented Pain Control: Adequate, Prn Tx Ordered Nausea/Vomiting Control: Adequate, Prn Tx Ordered Complications Possibly Related to Anesthesia: None Noted
--- NOTE | 2018-11-17 11:03 | SUROPNOTE ---
[facility] Operative Report - Surgery Operative note DOS 11/17/2018 Attg: Anmol Rubio Asst: None Preop Dx: Right open elbow dislocation, closed distal radius fracture Postop Dx: same, plus radial nerve deficit Procedure: I&D right open elbow dislocation, reduction of elbow dislocation, closed reduction of distal radius fracture Op course: Patient was taken to OR after reviewing consent. We discussed the likely nerve deficit explaining his motor and sensory loss. He understood that the plan was to do a repeat washout today and close the soft tissues as well as identify the radial nerve ends for potential future interventions, if applicable. He is aware that there is significant risk of functional impairment, infection, and even loss of limb. He agreed to proceed with this second washout and closure. He was transferred to the bed and anesthesia was induced. The right arm was prewashed and then prepped and draped in typical fashion. The prior sutures were removed. The wound bed was clean-appearing. I exposed the distal humerus and carefully delivered it through the wound, taking care not to over stretch any remaining soft tissues We then scrubbed the bone and wound with a betadine brush and then irrigated 6L of normal saline through the wound/joints/soft tissues to remove any remaining debris. After a thorough wash, we exsanguinated the arm and raised the tourniquet. we carefully dissected up along the lateral elbow and wad to identify the proximal end of the avulsed radial nerve. This was tagged with an O ethibond suture. We carefully relocated and reduced the elbow dislocation ensuring that no soft tissue was entrapped in the joints. We then identified the distal radial nerve end and also tagged it with an ethibond suture. The wound was then irrigated with another 3 Liters. I then closed the wound in layers with O PDS for the deep layer, 3-O monocryl for the subcutaneous tissue and then nylon for the skin. The arm was kept in a semiflexed and slightly pronated position where it was more stable. A sterile dressing was applied and then a long arm splint placed. The reduction was checked on fluoro. The distal radius was checked on fluoro and also splinted with an additional volar slab added to the long arm splint The reduction was checked on fluoro. The patient had brisk cap refill to all fingers at the end of the case. local was injected counts were correct. Complications: none EBL: 50cc Drain: none Findings: avulsed radial nerve end. unstable elbow
[2018-11-17] MEDS: ENOXAPARIN 40 MG/0.4 ML SYR SC SCH (12:14)
[2018-11-17] MEDS: GABAPENTIN 100 MG CAP PO SCH ×3 (12:14→21:19)
[2018-11-17] MEDS: SENNOSIDES/DOCUSATE SODIUM TAB PO SCH ×2 (12:18→21:21)
[2018-11-17] MEDS: ONDANSETRON 4 MG/2 ML VIAL IVP PRN (13:33)
--- NOTE | 2018-11-17 14:20 | ASMTCMCOM ---
CM Note CM Note Notes: Pt had repeat I&D today, no longer has wound vac. OT rec home, PT rec outpatient. Pt does not qualify for inpatient rehab. Pt is interested in [facility]. Pt does not know if his phone is working, the phone is with all of his belongings in the room but he reports he has not been emotionally ready to go through the bag and see if his phone works. Closer to d/c CM will see if his phone is working to make referral to [facility]. Pt has limited support system, he reports no family in [place] and resides with a roommate he hardly knows. Pt declines CM assistance in reaching any support person. Pt declines list of PCPs. Pt reports he has the [employer] student insurance and will go through if he needs to be seen. D/c plan of care: Independent Date Signed: 11/17/2018 02:20 PM Electronically Signed By:CHRISTOPH Mullins
[2018-11-17] MEDS: oxyCODONE IR 5 MG TAB PO PRN ×2 (14:40→21:20)
--- NOTE | 2018-11-17 15:54 | TRAUMAPN ---
Trauma Progress Note Assessment/Plan: 32 yo man s/p right fx dislocation right elbow with radial n avulsion injury Closure/ORIF today Dr Joanne Ramirez RRR CTA right hand ecchymosis Abrasions stable Abd soft NT Doing well Rehab/discharge per ortho Reg diet Adrenal contusion stable Objective: Vital Signs Temp Pulse Resp BP Pulse Ox 36.9 C 69 16 135/78 H 100 11/17/18 15:14 11/17/18 15:14 11/17/18 15:14 11/17/18 15:14 11/17/18 15:14 Laboratory Results 11/15/18 05:00 11/15/18 05:00 11/16/18 11/17/18 11/18/18 05:59 05:59 05:59 Intake Total 1500 1500 500 Output Total 1525 20 Balance -25 1500 480 PT 16.9 SEC (12.0-15.0) H 11/14/18 19:00 INR 1.44 (0.83-1.16) H 11/14/18 19:00
[2018-11-17] MEDS: HYDROCODONE/APAP 5/325 TAB PO PRN (17:21)
[2018-11-18] MEDS: oxyCODONE IR 5 MG TAB PO PRN ×3 (02:22→14:50)
[2018-11-18] MEDS: KETOROLAC 15 MG/1 ML SDV IVP SCH ×2 (02:22→08:18)
[2018-11-18] MEDS: AMPICILLIN/SULBACTAM 3 GM in NS 100 ML IV SCH ×2 (03:40→10:25)
[2018-11-18] MEDS: ENOXAPARIN 40 MG/0.4 ML SYR SC SCH (08:17)
[2018-11-18] MEDS: GABAPENTIN 100 MG CAP PO SCH (08:17)
[2018-11-18] MEDS: SENNOSIDES/DOCUSATE SODIUM TAB PO SCH (08:19)
--- NOTE | 2018-11-18 10:31 | SOAPPROG ---
TAO Progress Note Assessment/Plan: Assessment: 32y RHD M s/p rock climbing fall p/w Right wrist fracture and R open elbow dislocation s/p I&D and closed reductions of elbow and wrist Plan: - Yesterday 11/17 underwent I&D, exploration, and relocation of Right elbow, closed reduction of Right distal radius fracture - Dr. Peterson with [facility] has seen patient, who will need to setup followup with him regarding longer term plan for addressing Right radial nerve deficit and for distal radius fracture. - Patient to also followup with Dr. Rubio on 11/27 at [facility] to check on elbow wound. We discussed that an infection could threaten the limb, so it will be important for the patient to adhere to restrictions and proper care. - Keep elbow in splint, keep splint clean and dry - Nonweightbearing Right upper extremity - Elevate RUE as much as possible - Occupational therapy - AM fine with discharge as long as Trauma service clears. Subjective: Resting/sleeping in bed. Trying to elevate some. [place] uncomfortable with an episode of the forearm externally rotation around the humerus, but internally rotated the arm and then felt better. Objective: Vital Signs Temp Pulse Resp BP Pulse Ox 37.2 C 85 17 119/75 92 11/18/18 08:00 11/18/18 08:00 11/18/18 08:00 11/18/18 08:00 11/18/18 08:00 Laboratory Results 11/15/18 05:00 11/15/18 05:00 11/17/18 11/18/18 11/19/18 05:59 05:59 05:59 Intake Total 1500 2310 500 Output Total 20 Balance 1500 2290 500 PT 16.9 SEC (12.0-15.0) H 11/14/18 19:00 INR 1.44 (0.83-1.16) H 11/14/18 19:00 RUE: CDI splint. + FPL/FDS/FDP. No EPL/EDC. DIminished radial sensation. Intact A/U/M sensation. Warm fingers, slightly ecchymotic but good cap refill. mild/moderate edema. ICD10 Worksheet Patient Problems: Problems Problem Status Onset Abdominal pain Acute Closed fracture distal radius and ulna Acute Dislocation of elbow, right, open Acute Multiple abrasions Acute Radial artery injury Acute
[2018-11-18 11:15] VITALS: BP 119/66
--- NOTE | 2018-11-18 13:09 | SOAPPROG ---
SOAP Progress Note Assessment/Plan: Assessment: TERTIARY EXAM 32-YEAR-OLD MALE WHO FELL BOULDER RING SUSTAINING A SIGNIFICANT INJURY TO HIS RIGHT ARM DENIES ANY LOSS OF CONSCIOUSNESS OR ANY NECK PAIN/CERVICAL COLLAR WAS REMOVED ACCORDING TO PROTOCOL 2 HE DOES COMPLAIN OF SMALL LOWER LUMBAR AREA DISC HEMATOCRIT STABLE BUT IS COAGS ARE ELEVATED FOR UNCERTAIN REASONS HEENT WITHOUT EVIDENCE OF TRAUMA, PERRLA, IS NORMAL OCCLUSION, TMS CLEAR NECK SUPPLE NONTENDER FULL RANGE OF MOTION CHEST CLEAR AND SYMMETRIC NO PALPABLE RIB OR STERNAL FRACTURES OR CLAVICLE FRACTURES COR REGULAR RHYTHM ABDOMEN SOFT NO APPRECIABLE TENDERNESS GENITALIA NORMAL EXTREMITIES FULL RANGE OF MOTION FULL PULSES EXCEPT FOR HIS RIGHT ARM WHICH IS IN A FULL ARM SPLINT. HIS FINGERS ARE WARM AND SOMEWHAT SENSATE AND MOBILE WITH GOOD CAPILLARY REFILL. HIS PULSES CANNOT BE CHECKED BECAUSE OF THE SPLINT MATERIAL IMPRESSION OPEN RIGHT FRACTURE DISLOCATION OF THE ELBOW WITH TRANSECTION OF THE BRACHIAL RADIALIS MUSCLE, POSSIBLE AVULSION OF THE RADIAL NERVE/FRACTURE DISLOCATION OF THE RIGHT RADIUS AND ULNAR DISTALLY/MILD RETROPERITONEAL INFLAMMATION IN THE RIGHT MICHAEL NEPHRIC NEPHRIC AND ADRENAL AREA MILD CHIP FRACTURES OF L2 AND L4 RIGHT TRANSVERSE PROCESS FRACTURES Plan: FOLLOW-UP WITH NEUROSURGERY AND ORTHO/ADVANCE DIET/DC CERVICAL COLLAR/ TRANSFER TO [facility] 11/15/18 09:47 11/15/18 22:29 pt continues to improve/ cxr clear but suggests thoracic compression fxs/ no spinal tenderness but will order ct vs stable / afebrile angio of arm wnl 11/18/18 13:08 doing well/ afebrile/ vs ok/ right arm in cast but comfortable/ ambulating well home today Objective: Vital Signs Temp Pulse Resp BP Pulse Ox 36.8 C 86 18 119/66 91 L 11/18/18 11:15 11/18/18 11:15 11/18/18 11:15 11/18/18 11:15 11/18/18 11:15 Laboratory Results 11/15/18 05:00 11/15/18 05:00 11/17/18 11/18/18 11/19/18 05:59 05:59 05:59 Intake Total 1500 2310 500 Output Total 20 Balance 1500 2290 500 PT 16.9 SEC (12.0-15.0) H 11/14/18 19:00 INR 1.44 (0.83-1.16) H 11/14/18 19:00 ICD10 Worksheet Patient Problems: Problems Problem Status Onset Abdominal pain Acute Closed fracture distal radius and ulna Acute Dislocation of elbow, right, open Acute Multiple abrasions Acute Radial artery injury Acute
--- NOTE | 2018-11-18 13:45 | ASMTLACE ---
LACE Length of stay for Answers: 4-6 days current admission Acuity / Level of Answers: Yes Care: Did the patient have an inpatient admission? # of Emergency department Answers: 1-2 visits in the last 6 months Score: 8 Date Signed: 11/18/2018 01:44 PM Electronically Signed By:Serenity Giron RN
--- NOTE | 2018-11-18 13:52 | ASMTDCNOTE ---
Case Management Discharge Discharge Order Complete? Answers: Yes Patient to Obtain Answers: Independently Medications Discharge Comments Notes: Patient discharged home independently. I gave him some clothes since his were soiled. He has directions to follow up with ortho, surgery, and neuro. Date Signed: 11/18/2018 01:51 PM Electronically Signed By:Serenity Giron RN
== END 2018-11-18 15:00 | disposition home or self-care (01) | DRG 507 ==
LOC: EDBD 18:51 → F2N 20:19 → F3N 11-15 11:52
PROVIDERS: ADMIT Surgery; ATTEND Surgery
PROC: 30233N1 Transfusion of Nonautologous Red Blood Cells into Peripheral Vein, Percutaneous Approach (ICD-10-PCS; 2018-11-14)
PROC: 0PSH05Z Reposition Right Radius with External Fixation Device, Open Approach (ICD-10-PCS; 2018-11-14 19:20)
PROC: 05LY0CZ Occlusion of Upper Vein with Extraluminal Device, Open Approach (ICD-10-PCS; 2018-11-14 19:20)
PROC: 0PSHXZZ Reposition Right Radius, External Approach (ICD-10-PCS; principal; 2018-11-17 08:00)
PROC: 0RCL0ZZ Extirpation of Matter from Right Elbow Joint, Open Approach (ICD-10-PCS; principal; 2018-11-17 08:00)
PROC: 0RSL0ZZ Reposition Right Elbow Joint, Open Approach (ICD-10-PCS; principal; 2018-11-17 08:00)
DX: S52.571A Other intraarticular fracture of lower end of right radius, initial encounter for closed fracture (principal); S55.101A Unspecified injury of radial artery at forearm level, right arm, initial encounter; S53.101A Unspecified subluxation of right ulnohumeral joint, initial encounter; W17.81XA Fall down embankment (hill), initial encounter; Y92.828 Other wilderness area as the place of occurrence of the external cause
CPT/HCPCS: 82435-PO; 82565-PO; 82947-PO; 84132-PO; 84295-PO; 84520-PO; 85014-ER; 96374; 97116-GP; 97162-GP; 97165-GO; 97530-GP; 97535-GO; G0480; J0295; J0330; J0690; J1170; J1580; J1650; J1885; J2001; J2250; J2270; J2405; J2440; J2540; J2550; J2704; J3010; Q9967

== ENCOUNTER → 2018-11-22 | Outpatient (CLI) | payer OTHER | LOC: FIMAGING 17:51 | PROVIDERS: ATTEND Surgery | DX: M48.54XA Collapsed vertebra, not elsewhere classified, thoracic region, initial encounter for fracture (principal); T14.8XXA Other injury of unspecified body region, initial encounter ==